=== PATIENT | male | born 1985 | race Caucasian/White ===

== ENCOUNTER 2016-10-15 22:47 | Emergency (ER) | payer BC, OTHER ==
[~2016-10-15] VITALS: Ht 180.3 cm; Wt 75.0 kg
[2016-10-15 22:56] VITALS: BP 140/97
== END 2016-10-16 | disposition home or self-care (01) ==
LOC: ED 23:59
DX: S01.01XA Laceration without foreign body of scalp, initial encounter (principal); X58.XXXA Exposure to other specified factors, initial encounter; Y93.89 Activity, other specified; Y92.89 Other specified places as the place of occurrence of the external cause; Y99.8 Other external cause status
CPT/HCPCS: 12002; 70450; 72125; 99284

== ENCOUNTER 2016-10-26 16:33 | Emergency (ER) | payer BC ==
[~2016-10-26] VITALS: Ht 180.3 cm; Wt 73.9 kg
[2016-10-26 16:38] VITALS: BP 142/71
== END 2016-10-26 17:23 | disposition home or self-care (01) ==
LOC: ED 17:16
DX: S01.01XD Laceration without foreign body of scalp, subsequent encounter (principal); F12.10 Cannabis abuse, uncomplicated
CPT/HCPCS: 99281

== ENCOUNTER 2017-04-22 07:56 | Emergency (ER) | payer BC ==
[~2017-04-22] VITALS: Ht 180.3 cm; Wt 75.3 kg
[2017-04-22 07:57] VITALS: BP 162/103
[2017-04-22] MEDS ORDERED: LIDOCAINE-MPF 1%, 5ML INFIL ONE (08:30)
[2017-04-22] MEDS ORDERED: BACITRACIN ZINC OINT 500U/GM, 0.9 GM ONE (08:33)
== END 2017-04-22 09:03 | disposition home or self-care (01) ==
LOC: ED 08:40
DX: S01.81XA Laceration without foreign body of other part of head, initial encounter (principal); W18.09XA Striking against other object with subsequent fall, initial encounter; Y93.51 Activity, roller skating (inline) and skateboarding; Y92.098 Other place in other non-institutional residence as the place of occurrence of the external cause; Y99.8 Other external cause status
CPT/HCPCS: 12013; 99283